=== PATIENT | female | born 1930 | race Caucasian/White ===

== ENCOUNTER → 2017-10-11 | Day surgery (SDC) | payer OTHER, MEDICARE ==
[2017-10-08 19:04] LABS: ALT/SGPT 11 U/L (12-78); AST/SGOT 26 U/L (15-37); Albumin 3.5 g/dL (3.4-5.0); Alkaline Phosphatase 41 U/L (45-117); BUN Blood Urea Nitrogen 20 mg/dL (7-18); Bicarbonate 27 mmol/L (21-32); Bilirubin Total 0.7 mg/dL (0.2-1.0); Ferritin 23.9 ng/mL (8-388); Folic Acid, (Folate) > 20.0 ng/mL (3.1-17.5); Glucose Level 95 mg/dL (74-106); Potassium 4.2 mmol/L (3.5-5.1); Protein, Total 7.3 g/dL (6.4-8.2); Sodium Level 138 mmol/L (136-145); Transferrin 308 mg/dL (200-360)
[~2017-10-11] MED LIST: NA CHLORIDE 0.9% 250 ML ONE
--- OUTSIDE RECORDS SUMMARY | 2017-10-11 08:03 | XMS REPORT | Clinical Summary ---
:1930 Author Organization [facility] Address [address] [place] [address] Care Team Providers Name Role Phone Alex Darling MD Primary Care Provider Allergies Active Allergy Reactions Severity Noted Date Comments Meperidine 12/06/2015 Current Medications Prescription Sig. Disp. Refills Start Date End Date Status atorvastatin Take 10 mg by Active (LIPITOR) 10 MG mouth daily. tablet clopidogrel (PLAVIX) Take 75 mg by Active 75 mg tablet mouth daily. metoprolol succinate Take 50 mg by Active XL (TOPROL-XL) 50 MG mouth daily. 24 hr tablet omeprazole Take 40 mg by Active (PriLOSEC) 40 MG mouth daily. capsule BUMETanide (BUMEX) 1 Take 1 mg by 3 12/16/2016 Active MG tablet mouth 2 (two) times a day. levothyroxine 12/30/2016 Active (SYNTHROID, LEVOXYL) 150 mcg tablet KLOR-CON 10 10 mEq Take 10 mEq by 3 10/26/2016 Active CR tablet mouth 2 (two) times a day. aspirin (ECOTRIN) 81 Take 81 mg by Active MG enteric coated mouth daily. tablet magnesium oxide TAKE 1 TABLET BY 3 01/14/2017 Active (MAG-OX) 400 mg ORAL ROUTE EVERY tablet DAY potassium chloride TAKE 1 TABLET BY 3 03/28/2017 Active (K-DUR,KLOR-CON) [address] 2 MEQ CR tablet TIMES EVERY DAY metOLazone TAKE 1 TABLET BY 6 03/21/2017 Active (ZAROXOLYN) 2.5 MG ORAL ROUTE EVERY tablet WEEK (TAKE 30MIN BEFORE FUROSEMIDE) brimonidine 1 drop 2 (two) 04/16/2017 Discontinued (ALPHAGAN) 0.15 % times a day. ophthalmic solution brimonidine-timolol Administer 1 drop 04/16/2017 Discontinued (COMBIGAN) 0.2-0.5 % to both eyes 2 ophthalmic solution (two) times a day. furosemide (LASIX) Take 40 mg by 04/16/2017 Discontinued 40 MG tablet mouth daily. levothyroxine Take 125 mcg by 04/16/2017 Discontinued (SYNTHROID, mouth daily. LEVOTHROID) 125 MCG tablet losartan (COZAAR) 50 Take 50 mg by 04/16/2017 Discontinued MG tablet mouth 2 (two) times a day. travoprost Administer 1 drop 04/16/2017 Discontinued (TRAVATAN-Z) 0.004 % to both eyes nightly. ALPRAZolam (XANAX) Take 0.25 mg by 0 11/30/2016 04/16/2017 Discontinued 0.25 MG tablet mouth nightly as needed. for sleep predniSONE Take 30 mg by 0 12/24/2016 04/16/2017 Discontinued (DELTASONE) 10 mg mouth once daily. tablet Active Problems Problem Noted Date SOB (shortness of breath) 01/01/2017 Chest pain 01/01/2017 Atrial fibrillation 12/06/2015 Essential hypertension 12/06/2015 Hyperlipidemia 12/06/2015 Peripheral vascular disease 12/06/2015 Encounters Date Type Specialty Care Team Description 07/02/2017 Office Visit Cardiology Justin Mulligan MD SOB (shortness of breath) (Primary Dx); Atrial fibrillation, unspecified type; Peripheral vascular disease 04/16/2017 Office Visit Cardiology Justin Mulligan MD Peripheral vascular disease (Primary Dx); Chronic atrial fibrillation 01/01/2017 Office Visit Cardiology Justin Mulligan MD Chest pain, unspecified type (Primary Dx); Atrial fibrillation, unspecified type; SOB (shortness of breath) after 10/10/2016 Family History Medical History Relation Name Comments Coronary artery disease Other Family Hx Relation Name Status Comments Father Mother Other Family Hx Social History Tobacco Use Types Packs/Day Years Used Date Former Smoker Smokeless Tobacco: Never Used Alcohol Use Drinks/Week oz/Week Comments No Sex Assigned at Date Recorded Not on file Last Filed Vital Signs Vital Sign Reading Time Taken Blood Pressure 111/55 07/02/2017 11:20 AM CDT Pulse 62 07/02/2017 11:20 AM CDT Temperature - - Respiratory Rate - - Oxygen Saturation - - Inhaled Oxygen Concentration - - Weight 57.2 kg (126 lb) 07/02/2017 11:20 AM CDT Height 154.9 cm (5' 1") 07/02/2017 11:20 AM CDT Body Mass Index 23.81 07/02/2017 11:20 AM CDT Plan of Treatment Date Type Specialty Care Team Description 12/31/2017 Office Visit Cardiology Justin Mulligan MD [id number] [place] [address] Health Maintenance Due Date Last Done Comments SHINGRIX VACCINE (#1) 05/18/1981 ZOSTER VACCINE 1991 PNEUMOCOCCAL POLYSACCHARIDE VACCINE AGE 65 AND OVER 05/18/1996 PNEUMOCOCCAL-13 05/18/1996 INFLUENZA VACCINE 09/18/2017 Procedures Procedure Name Priority Date/Time Associated Diagnosis Comments ECG 12-LEAD Routine 01/01/2017 5:25 PM Atrial fibrillation, Results for this ACADEMIC PROGRAM SPECIALIST unspecified type procedure are in the results section. after 10/10/2016 Results ECG 12 lead (01/01/2017 5:25 PM) Ventricular rate 62 [facility] Atrial rate 73 [facility] QRSD interval 112 [facility] QT interval 448 [facility] QTC interval 454 [facility] QRS axis 1 115 [facility] T wave axis 90 [facility] EKG impression Atrial fibrillation-Right axis deviation-Right ventricular hypertrophy-Nonspecific ST and T wave abnormality-Abnormal ECG-In automated comparison with ECG of 22-FEB-2011 09:08,-Atrial fibrillation has replaced Sinus rhythm-Questionable change in QRS [facility] M[facility] duration-Electronically Signed By Jamil Ruiz ([id number]) on 2016 5:19:25 PM Performing Organization Address City/State/Zipcode Phone Number [facility] [employer] [address] [place] [address] after 10/10/2016 Insurance Payer Benefit Plan / Group Subscriber ID Type Phone Address MEDICARE MEDICARE PART A AND B xxxxxxxxxx Medicare [place], [place] AARP AARP SUPPLEMENT xxxxxxxxxxx Commercial
[2017-10-11 10:42] VITALS: BMI 22.6
[2017-10-11 13:53] LABS: Hematocrit 23.9 % (36.0-45.0)
[2017-10-11 13:59] VITALS: BP 110/54; TEMP 98.3; O2SAT 95
== END ==
LOC: DS 07:56
PROVIDERS: ATTEND Internal Medicine Medical Oncology
DX: D50.9 Iron deficiency anemia, unspecified (principal); D61.810 Antineoplastic chemotherapy induced pancytopenia; D46.9 Myelodysplastic syndrome, unspecified
CPT/HCPCS: 36415 ×2; 36430; 80053; 82607; 82728; 82746; 83540; 84466; 85014; 85018; 86850; 86870; 86900; 86901; 86922; P9016

== ENCOUNTER 2017-10-15 07:20 | Day surgery (SDC) | payer OTHER, MEDICARE ==
[2017-10-15] MEDS ORDERED: NA CHLORIDE 0.9% 500 ML ONE (07:55)
--- OUTSIDE RECORDS SUMMARY | 2017-10-15 09:25 | XMS REPORT | Clinical Summary ---
:1930 Author Organization [facility] Address [address] [place] [address] Care Team Providers Name Role Phone Alex [...] unspecified type; SOB (shortness of breath) after 10/14/2016 Family History Medical History Relation Name Comments [...] 12/31/2017 Office Visit Cardiology Justin Mulligan MD [id number] [place] [address] Health Maintenance Due Date Last Done Comments SHINGRIX VACCINE (#1) 05/18/1981 ZOSTER VACCINE 1991 PNEUMOCOCCAL POLYSACCHARIDE VACCINE AGE 65 AND OVER 05/18/1996 PNEUMOCOCCAL-13 05/18/1996 INFLUENZA VACCINE 09/18/2017 Procedures Procedure Name Priority Date/Time Associated Diagnosis Comments ECG 12-LEAD Routine 01/01/2017 5:25 PM Atrial fibrillation, Results for this MANAGER OUTREACH unspecified type procedure are in the results section. after 10/14/2016 Results ECG 12 lead (01/01/2017 5:25 PM) [...] has replaced Sinus rhythm-Questionable change in QRS [facility] MUSE duration-Electronically Signed By Jamil Ruiz ([id number]) on 2016 5:19:25 PM Performing Organization Address City/State/Zipcode Phone Number [facility] [employer] [address] [place] [address] after 10/14/2016 Insurance Payer Benefit Plan / Group Subscriber ID Type Phone Address MEDICARE MEDICARE PART A AND B xxxxxxxxxx Medicare [place], [place] AARP AARP SUPPLEMENT xxxxxxxxxxx Commercial
[2017-10-15 09:59] VITALS: TEMP 98.7
[2017-10-15 10:00] VITALS: BMI 23.0
[2017-10-15 13:54] LABS: Hematocrit 25.2 % (36.0-45.0)
[2017-10-15 14:46] VITALS: BP 110/55; O2SAT 93
== END 2017-10-15 13:45 | disposition home or self-care (01) ==
LOC: DS 07:20
PROVIDERS: ATTEND Internal Medicine Medical Oncology
PROC: 30233N1 Transfusion of Nonautologous Red Blood Cells into Peripheral Vein, Percutaneous Approach (ICD-10-PCS; principal; 2017-10-15)
DX: D46.9 Myelodysplastic syndrome, unspecified (principal); I50.9 Heart failure, unspecified
CPT/HCPCS: 36415; 36430; 85014; 85018; 86850; 86870; 86900; 86901; 86922; P9016